=== PATIENT | male | born 1975 | race African-American/Black ===

== ENCOUNTER 2018-10-30 10:30 | Emergency (ER) | payer BC ==
[~2018-10-30] VITALS: Ht 185.4 cm; Wt 188.6 kg
[2018-10-30] MEDS ORDERED: GENTAMICIN EYE D5 ML OS (10:47)
[2018-10-30] MEDS ORDERED: ZOVIRAX800 MG PO (11:23)
[2018-10-30 11:48] VITALS: BP 160/111; PULSE 83; TEMP 98.8
== END 2018-10-30 11:48 | disposition home or self-care (01) ==
LOC: COL.ER 10:30
DX: H10.9 Unspecified conjunctivitis (principal); B02.9 Zoster without complications